=== PATIENT | male | born 1965 | race Caucasian/White ===

== ENCOUNTER 2020-07-17 14:32 | Emergency (ER) | payer BC, SELFPAY ==
--- OUTSIDE RECORDS SUMMARY | 2020-07-17 14:35 | XMS REPORT | Continuity of Care Document ---
:1965 Author Organization [facility] t Address [address] [place] [address] Care Team Providers Name Role Phone Eugene Matias DO, D. Primary Care Physician Osiris Knight DO Attending Clinician Payers Payer Name Policy Type Policy Effective Expiration Source Number Date Date COMMERCIAL MISCMISC xxxxxxxxxxx 2019 Jeannie ton [id number] 00:00:00 M ethodist [id number]-PresentComme rcial INDEPENDENT MEDICAL xxxxxxxxxxx 2019 Jeannie hollis SYSTEMSINDEPENDENT 3001 00:00:00 Method ist MEDICAL [id number] Problems Condition Condition Condition Status Onset Resolution Last Treating Co mments Source Name Details Category Date Date Treatment Clinician Date HLD HLD Disease Active [place] (hyperlipi (hyperlipi 3-12 Me thodi demia) demia) 00:00: st 00 Transamini Transamini Disease Active [place] tis tis 3-12 Methodi 00:00: st 00 Internal Internal Disease Active Last Liliane on hemorrhoid hemorrhoid 3-06 Assessmen Methodi s s 00:00: t & Plan: Chronic indolent course, sometime resulting in IDAPendin g f/u eval w/ GI for colonosco py Will obtain CBC and iron panel Meniere Meniere Disease Active Last [place] disease disease 3-06 Assessmen Metho di 00:00: t & Plan: st 00 Resulting in hearing loss in L ear IBS IBS Disease Active [place] (irritable (irritable 3- Assessmen Methodi bowel bowel 00:00: t & Plan: st syndrome) syndrome) 00 Described as waxing waning achy pain for several hrs, sometimes assoc w/ stress and anxiety S/p extensive w/u w/ unremarka ble findings Anxiety Anxiety Disease Active [place] 01-09 Methodi 00:00: 00 B12 B12 Disease Active [facility] deficiency deficiency 01-09 Assessmen Methodi 00:00: t & Plan: 00 C/o fatigue Recently started on B complex supplemen tation Will obtain lvl Iron Iron Disease Active [place] deficiency deficiency 01-09 Me thodi anemia anemia 00:00: st 00 Hypertensi Hypertensi Disease Active Last [place] on on Assessmen Methodi t & Plan: st Currently hypotensi ve, and mildly tachycard ic Asymptoma tic Compliant w/ anti-HTN regimenAd vised to monitor BP at home, and if pronounce d hypotensi on, and or sx arise to present to clinic for meds titration On f/u visit if again hypotensi ve will d/c diuretic, and recheck BP in 1 wk for effective ness of solitary medicatio nC/t monitor History of History of Disease Active Last colonic colonic Assessmen Metho di polyps polyps t & Plan: st Multiple tubular adenomas noted on last colonosco py '17Pendin g rpt this year for 3 yr f/u study Allergies, Adverse Reactions, Alerts This patient has no known allergies or adverse reactions. Family History Family Member Diagnosis Comments Start Date Stop Date Source Paternal Hyperlipidemia [place] grandfather [place] Paternal Hyperlipidemia [place] grandmother [place] Natural brother Hearing loss [place] Natural brother Hyperlipidemia [place] Natural father Alcohol abuse [place] Natural father Cancer [place] Natural mother Arthritis [place] Natural mother Heart disease [place] Natural mother Miscarriages / [place] Stillbirths [place] Social History Social Habit Start Date Stop Date Quantity Comments Source Sex Assigned At [facility] ethodist Tobacco use and 2019-08-01 2019-08-01 Never used [facility] ethodist exposure 00:00:00 00:00:00 Alcohol intake 2019-08-01 2019-08-01 Current drinker [place] 00:00:00 00:00:00 of alcohol (finding) Alcohol Comment 2019-07-26 2019-07-26 3-5 per day - [place] 00:00:00 00:00:00 beer or wine Smoking Status Start Date Stop Date Source Never smoker Brendan Gill t Medications Ordered Filled Start Stop Current Ordering Indication Dosage Frequency Signature Comments Components Source Medication Medication Date Date Medication? Clinician (SIG) Name Name vitamin B Yes QD Take by [place] complex/fol 306 mouth Methodi ic acid (B 15:41: daily. st COMPLEX 100 06 ORAL) melatonin 3 Yes QD Take by Aldo ston mg tablet 06 mouth Methodi 15:41: nightly as st 06 needed for sleep. losartan-hy Yes TAKE 1 [place] drochloroth 1-29 TABLET BY Met belen iazide 00:00: MOUTH st (HYZAAR) 00 DAILY 50-12.5 mg per tablet Vital Signs Vital Name Observation Time Observation Value Comments Source Systolic blood 2019-07-26 15:37:00 104 mm[Hg] [place] pressure Diastolic blood 2019-07-26 15:37:00 68 mm[Hg] [place] pressure Heart rate 2019-07-26 15:37:00 102 /min Brendan Goss Body temperature 2019-07-26 15:37:00 37 Liz [place] Respiratory rate 2019-07-26 15:37:00 18 /min [place] Body height 2019-07-26 15:37:00 177.8 cm Brendan Cramreist Body weight 2019-07-26 15:37:00 78.472 kg Brendan Cramerist BMI 2019-07-26 15:37:00 24.82 kg/m2 [place] Oxygen saturation in 2019-07-26 15:37:00 98 [facility] by Pulse oximetry Procedures This patient has no known procedures. Plan of Care Planned Activity Planned Date Details Comments Source Future Scheduled 2020-07-25 SHINGLES VACCINES Postponed from [place] Test 00:00:00 (#1) [code = 2015 SHINGLES VACCINES (Insurance / (#1)] Financial) Future Scheduled 2020-04-07 COLONOSCOPY [place] Met hodist Test 00:00:00 SCREENING [code = COLONOSCOPY SCREENING] Future Scheduled 2019-12-21 INFLUENZA VACCINE [place] Test 00:00:00 [code = INFLUENZA VACCINE] Future Scheduled 1983 Hepatitis C [place] Met hodist Test 00:00:00 screening (procedure) [code = 238278065] Future Scheduled 1981 COVID-19 VACCINE (1 [place] Test 00:00:00 of 2) [code = COVID-19 VACCINE (1 of 2)] Encounters Start End Encounter Admission Attending Care Care Encounter Source Date/Time Date/Time Type Type Clinicians Facility Department ID 2019-07-26 2019-07-26 Outpatient [facility] [id number] 904 [place] 00:00:00 00:00:[address] Results This patient has no known results.
[2020-07-17 15:42] LABS: Hematocrit 29.2 % (39.6-49.0); RBC Red Blood Cell Count 3.06 M/uL (4.33-5.43)
[2020-07-17 15:45] LABS: Protime INR 1.12
[2020-07-17 16:02] LABS: Albumin 2.4 g/dL (3.4-5.0); Bilirubin Direct 15.4 mg/dL (0-0.2); Potassium 3.3 mmol/L (3.5-5.1); Protein, Total 5.9 g/dL (6.4-8.2)
[2020-07-17 16:03] LABS: Bilirubin Total 19.1 mg/dL (0.2-1.0)
[2020-07-17 17:04] LABS: Absolute Lymphocytes (CBC) 0.8 K/uL (0.7-4.9)
[2020-07-17 17:06] LABS: Anisocytosis 3+; Blood Morphology Comment NOTED (NOT SEEN); Platelet Estimate ADEQ
--- NOTE | 2020-07-17 18:03 | RAD REPORT ---
EXAM DESCRIPTION: US - Abdomen Exam Limited - 07/17/2020 5:56 pm CLINICAL HISTORY: ABD PAIN COMPARISON: No comparisons FINDINGS: The gallbladder demonstrates no gallstones. Gallbladder wall is mildly thickened. The comm on bile duct is normal measuring 3 mm. The liver demonstrates no findings of intrahepatic biliary dilatation. IMPRESSION: Mild gallbladder wall thickening is seen which is a nonspecific finding. No stones are v isible. The findings may be related to underline hepatic parenchymal disease, gallbladder dysfunctio n or hypoalbuminemia.
--- NOTE | 2020-07-17 18:05 | EDPHYS ---
Physician Documentation [facility] Name: Herber Trejo Age: 55 yrs Sex: Male : 1965 Arrival Date: 07/17/2020 Time: 14:36 Bed 8 Private MD: ED Physician Tru Wong HPI: 07/17 17:00 This 55 yrs old Male presents to ER via Ambulatory with complaints of kb Abnormal Lab. 17:00 Pt states he went for a physical and they recommended labs because of his appearance. kb States he got a call today to come to the ER for liver and kidney problems. Creat 1.24 and total bili 21 on labs pt brought with him. States he woke up with a yellow appearance on Monday.. Onset: The symptoms/episode began/occurred 7 day(s) ago. Severity of symptoms: At their worst the symptoms were moderate in the emergency department the symptoms are unchanged. The patient has not experienced similar symptoms in the past. The patient has been recently seen by a physician:. Historical: - Allergies: 14:49 No Known Allergies; ll1 - PMHx: 14:49 Hypertension; ll1 - Immunization history:: Flu vaccine is not up to date. - Social history:: Smoking status: Patient denies any tobacco usage or history of. ROS: 16:58 Constitutional: Negative for fever, chills, and weight loss, Cardiovascular: Negative kb for chest pain, palpitations, and edema, Respiratory: Negative for shortness of breath, cough, wheezing, and pleuritic chest pain, MS/Extremity: Negative for injury and deformity, Neuro: Negative for headache, weakness, numbness, tingling, and seizure. 16:58 Abdomen/GI: Positive for abdominal pain, of the left upper quadrant. 16:58 Skin: Positive for jaundice. Exam: 16:59 Constitutional: This is a well developed, well nourished patient who is awake, alert, kb and in no acute distress. Head/Face: Normocephalic, atraumatic. Chest/axilla: Normal chest wall appearance and motion. Nontender with no deformity. No lesions are appreciated. Cardiovascular: Regular rate and rhythm with a normal S1 and S2. No gallops, murmurs, or rubs. Normal PMI, no JVD. No pulse deficits. Respiratory: Lungs have equal breath sounds bilaterally, clear to auscultation and percussion. No rales, rhonchi or wheezes noted. No increased work of breathing, no retractions or nasal flaring. Abdomen/GI: Soft, non-tender, with normal bowel sounds. No distension or tympany. No guarding or rebound. No evidence of tenderness throughout. MS/ Extremity: Pulses equal, no cyanosis. Neurovascular intact. Full, normal range of motion. Neuro: Awake and alert, GCS 15, oriented to person, place, time, and situation. Cranial nerves II-XII grossly intact. Motor strength 5/5 in all extremities. Sensory grossly intact. Cerebellar exam normal. Normal gait. 16:59 Eyes: Sclera: icterus. 16:59 Skin: Appearance: normal except for affected area, Color: jaundiced. Vital Signs: 14:45 BP 126 / 79; Pulse 79; Resp 16; Temp 99.0; Pulse Ox 99% ; Weight 76.2 kg; Height 5 ft. ll1 10 in. (177.80 cm); Pain 8/10; 15:37 BP 115 / 83; Pulse 73; Resp 15; Pulse Ox 99% ; jl7 15:40 Temp 99.6; jl7 16:31 BP 115 / 76; Pulse 66; Resp 15; Pulse Ox 100% on R/A; mt 17:12 BP 130 / 88; Pulse 74; Resp 15; Pulse Ox 100% ; jl7 18:00 BP 131 / 88; Pulse 70; Resp 15; Pulse Ox 100% ; jl7 19:00 BP 156 / 97; Pulse 81; Resp 17; Pulse Ox 100% ; jl7 14:45 Body Mass Index 24.11 (76.20 kg, 177.80 cm) ll1 MDM: 14:50 Patient medically screened. kb 16:57 Data reviewed: vital signs, nurses notes. Data interpreted: Pulse oximetry: on room air kb is 100 %. Interpretation: normal. Counseling: I had a detailed discussion with the patient and/or guardian regarding: the historical points, exam findings, and any diagnostic results supporting the discharge/admit diagnosis, lab results, radiology results, the need for outpatient follow up, Internal Audit Consultant, to return to the emergency department if symptoms worsen or persist or if there are any questions or concerns that arise at home. ED course: Discussed diagnostics and pt history with ERP. Recommends outpatient follow up with partner marketing manager. 07/17 15:04 Order name: Basic Metabolic Panel; Complete Time: 16:06 kb 07/17 15:04 Order name: CBC with Diff; Complete Time: 17:12 kb 07/17 15:04 Order name: Hepatic Function; Complete Time: 16:06 kb 07/17 15:04 Order name: Lipase; Complete Time: 16:06 kb 07/17 15:04 Order name: Protime (+inr); Complete Time: 15:48 kb 07/17 15:04 Order name: Ptt, Activated; Complete Time: 15:48 kb 07/17 15:04 Order name: IV Saline Lock; Complete Time: 15:36 kb 07/17 15:04 Order name: Labs collected and sent; Complete Time: 15:36 kb 07/17 15:04 Order name: [place] Screen Profile; Complete Time: 16:06 kb 07/17 16:11 Order name: US Abdomen Limited; Complete Time: 18:04 kb 07/17 17:05 Order name: Manual Differential; Complete Time: 17:12 EDMS Administered Medications: 18:13 Drug: NS 0.9% 1000 ml Route: IV; Rate: 1000 ml; Site: right forearm; jl7 19:11 Follow up: Response: No adverse reaction; IV Status: Completed infusion; IV Intake: jl7 1000ml Disposition: 07/17/20 18:04 Discharged to Home. Impression: Other disorders of bilirubin metabolism. - Condition is Stable. - Discharge Instructions: Jaundice, Adult, [id number]. - Medication Reconciliation Form, Thank You Letter, Antibiotic Education, Prescription Opioid Use form. - Follow up: Private Physician; When: 2 - 3 days; Reason: Recheck today's complaints, Continuance of care, Re-evaluation by your physician. Follow up: Emergency Department; When: As needed; Reason: Worsening of condition. Addendum: 07/20/2020 05:23 Co-signature as Attending Physician, Tru Wong MD I agree with the assessment and k dr plan of care. Signatures: Dispatcher [employer] EDMS Renetta Pedersen, DOROTA MCKEON-Tru Montez MD MD kdr Leal, Jahala RN RN jl7 Debbie Pickens RN RN ll1 Corrections: (The following items were deleted from the chart) 07/17 19:13 18:04 07/17/2020 18:04 Discharged to Home. Impression: Other disorders of bilirubin jl7 metabolism. Condition is Stable. Discharge Instructions: Jaundice, Adult, [id number]. Forms are Medication Reconciliation Form, Thank You Letter, Antibiotic Education, Prescription Opioid Use. Follow up: Private Physician; When: 2 - 3 days; Reason: Recheck today's complaints, Continuance of care, Re-evaluation by your physician. Follow up: Emergency Department; When: As needed; Reason: Worsening of condition. kb
--- NOTE | 2020-07-17 18:05 | ER ---
Nurse's Notes [facility] Name: Herber Trejo Age: 55 yrs Sex: Male : 1965 Arrival Date: 07/17/2020 Time: 14:36 Bed 8 Private MD: Diagnosis: Other disorders of bilirubin metabolism Presentation: 07/17 14:45 Chief complaint: Patient states: Yellow eyes/skin during physical with Ligia Rueda. Labs ll1 drawn yesterday morning, and he was called and told to come to the ER. Poor kidney function and AST ALT elevation. Coronavirus screen: Client denies travel out of the [place] in the last 14 days. At this time, the client does not indicate any symptoms associated with coronavirus-19. Ebola Screen: Patient denies travel to an Ebola-affected area in the 21 days before illness onset. Initial Sepsis Screen: Does the patient meet any 2 criteria? No. Patient's initial sepsis screen is negative. Does the patient have a suspected source of infection? Yes: Acute abdominal pain. Risk Assessment: Do you want to hurt yourself or someone else? Patient reports no desire to harm self or others. Onset of symptoms was July 11, 2019. 14:45 Method Of Arrival: Ambulatory ll1 14:45 Acuity: JAYLEN 3 ll1 Historical: - Allergies: 14:49 No Known Allergies; ll1 - PMHx: 14:49 Hypertension; ll1 - Immunization history:: Flu vaccine is not up to date. - Social history:: Smoking status: Patient denies any tobacco usage or history of. Screenin:37 Abuse screen: Denies threats or abuse. Denies injuries from another. Nutritional jl7 screening: No deficits noted. Tuberculosis screening: No symptoms or risk factors identified. Fall Risk IV access (20 points). Total Rubin Fall Scale indicates No Risk (0-24 pts). Assessment: 15:37 General: Appears in no apparent distress. uncomfortable, Behavior is calm, cooperative, jl7 appropriate for age. Pain: Denies pain. Neuro: Level of Consciousness is awake, alert, obeys commands, Oriented to person, place, time, situation. Cardiovascular: Patient's skin is warm and dry. Respiratory: Airway is patent Respiratory effort is even, unlabored, Respiratory pattern is regular, symmetrical. GI: No signs and/or symptoms were reported involving the gastrointestinal system. Derm: Skin is dry, Skin is jaundiced, Skin temperature is warm. 17:14 Reassessment: Patient appears in no apparent distress at this time. No changes from [facility] previously documented assessment. Patient and/or family updated on plan of care and expected duration. Pain level reassessed. Patient is alert, oriented x 3, equal unlabored respirations, skin warm/dry/pink. 18:05 Reassessment: ERP at bedside discussing results and POC. [facility] 18:14 Reassessment: Pt will be discharged once fluids are done infusing. 7 Vital Signs: 14:45 BP 126 / 79; Pulse 79; Resp 16; Temp 99.0; Pulse Ox 99% ; Weight 76.2 kg; Height 5 ft. ll1 10 in. (177.80 cm); Pain 8/10; 15:37 BP 115 / 83; Pulse 73; Resp 15; Pulse Ox 99% ; jl7 15:40 Temp 99.6; jl7 16:31 BP 115 / 76; Pulse 66; Resp 15; Pulse Ox 100% on R/A; mt 17:12 BP 130 / 88; Pulse 74; Resp 15; Pulse Ox 100% ; jl7 18:00 BP 131 / 88; Pulse 70; Resp 15; Pulse Ox 100% ; jl7 19:00 BP 156 / 97; Pulse 81; Resp 17; Pulse Ox 100% ; jl7 14:45 Body Mass Index 24.11 (76.20 kg, 177.80 cm) ll1 ED Course: 14:36 Patient arrived in ED. ds1 14:48 Triage completed. ll1 14:49 Arm band placed on Patient placed in an exam room, on a stretcher. ll1 14:50 [facility]-C [facility] kb 14:50 Tru Wong MD is Attending Physician. kb 14:51 Jorge Luis Yi RN is Primary Nurse. jl7 15:37 Patient has correct armband on for positive identification. Bed in low position. Call [facility] light in reach. Side rails up X 1. Pulse ox on. NIBP on. 15:37 Initial lab(s) drawn, by me, sent to lab. Inserted saline lock: 20 gauge in right [facility] forearm, using aseptic technique. Blood collected. 17:56 US Abdomen Limited In Process Unspecified. EDMS 19:12 No provider procedures requiring assistance completed. IV discontinued, intact, jl7 bleeding controlled, No redness/swelling at site. Pressure dressing applied. Administered Medications: 18:13 Drug: NS 0.9% 1000 ml Route: IV; Rate: 1000 ml; Site: right forearm; jl7 19:11 Follow up: Response: No adverse reaction; IV Status: Completed infusion; IV Intake: jl7 1000ml Intake: 19:11 IV: 1000ml; Total: 1000ml. jl7 Outcome: 18:04 Discharge ordered by MD. ruiz 19:12 Discharged to home ambulatory. jl7 19:12 Condition: stable 19:12 Discharge instructions given to patient, Instructed on discharge instructions, follow up and referral plans. Demonstrated understanding of instructions, follow-up care. 19:13 Patient left the ED. jl7 Signatures: Dispatcher [employer] EDMA Renetta Pedersen, CLERICAL SUPPORT SPECIALIST-C CLERICAL SUPPORT SPECIALIST-CkJanell Peña ds1 Jorge Luis Yi RN RN jl7 Giulia Ny mt, Lynsay RN RN ll1
[2020-07-17] MEDS ORDERED: NA CHLORIDE 0.9% 1,000 ML ONE (18:27)
[2020-07-17 20:22] VITALS: TEMP 99.6
[2020-07-17 20:23] VITALS: O2SAT 100
[2020-07-17 20:27] VITALS: BP 156/97
== END 2020-07-17 19:13 | disposition home or self-care (01) ==
LOC: ER 14:32
DX: E80.6 Other disorders of bilirubin metabolism (principal); I10 Essential (primary) hypertension
CPT/HCPCS: 85025; 80048; 36415; 86308; 85610; 80076; 85730; 83690; 76705; 96360; 99284; J7030